=== PATIENT | female | born 1975 | race Caucasian/White ===

== ENCOUNTER 2018-06-24 05:25 | Inpatient (IN) | payer OTHER ==
[~2018-06-24] VITALS: Ht 165.1 cm; Wt 69.3 kg
[2018-06-24] VITALS (11 sets, daily range): BP systolic 106–149; BP diastolic 76–98; PULSE 81–100; TEMP 97–98
[2018-06-24] MEDS ORDERED: FLEXERIL5 MG PO (06:04)
[2018-06-24] MEDS ORDERED: PERCOCET 325 MG1 TAB PO (06:04)
[2018-06-24] MEDS ORDERED: IBU600 MG PO (16:56)
[2018-06-24] MEDS ORDERED: PERCOCET 325 MG1 TA3 PO (16:57)
[2018-06-25 03:44] VITALS: BP 132/93; PULSE 94; TEMP 98
[2018-06-25 08:00] VITALS: BP 152/97
[2018-06-25 08:22] LABS: HEMOGLOBIN 10.7 g/dl (12.5-16.0)
[2018-06-25 08:30] LABS: HEMATOCRIT 32.8 % (37.0-47.0)
[2018-06-25 08:45] VITALS: BP 152/96; PULSE 80; TEMP 98
[2018-06-25 10:55] VITALS: BP 136/87
== END 2018-06-25 11:45 | disposition home or self-care (01) | DRG 743 ==
LOC: OB 05:25 → SDCO 05:25 → OB 08:57 → SDCO 10:30 → OB 06-25 11:45 → SDCO 06-25 11:45 → OB 06-25 11:45
PROVIDERS: Obstetrics & Gynecology; Surgery
PROC: 8E0W4CZ Robotic Assisted Procedure of Trunk Region, Percutaneous Endoscopic Approach (ICD-10-PCS; 2018-06-24)
PROC: 0UT9FZZ Resection of Uterus, Via Natural or Artificial Opening With Percutaneous Endoscopic Assistance (ICD-10-PCS; principal; 2018-06-24 07:30)
PROC: 0UT7FZZ Resection of Bilateral Fallopian Tubes, Via Natural or Artificial Opening With Percutaneous Endoscopic Assistance (ICD-10-PCS; 2018-06-24 07:30)
PROC: 0UT1FZZ Resection of Left Ovary, Via Natural or Artificial Opening With Percutaneous Endoscopic Assistance (ICD-10-PCS; 2018-06-24 07:30)
PROC: 0YU64JZ Supplement Left Inguinal Region with Synthetic Substitute, Percutaneous Endoscopic Approach (ICD-10-PCS; 2018-06-24 07:30)
DX: N80.0 Endometriosis of uterus (principal); R10.2 Pelvic and perineal pain; N92.6 Irregular menstruation, unspecified; K40.90 Unilateral inguinal hernia, without obstruction or gangrene, not specified as recurrent; B18.2 Chronic viral hepatitis C; M79.7 Fibromyalgia; F17.210 Nicotine dependence, cigarettes, uncomplicated; F41.8 Other specified anxiety disorders
CPT/HCPCS: OP; A4314; C1781; J0690; J1170; J1885; J2250; J2405; J2704; J2710; J3010; J7120